=== PATIENT | female | born 1940 | race African-American/Black ===

== ENCOUNTER 2018-03-20 19:50 | Emergency (ER) | payer MEDICARE, MEDICAID ==
[~2018-03-20] VITALS: Ht 149.9 cm; Wt 96.2 kg
--- NOTE | 2018-03-20 20:35 | Emergency Room Report ---
History of Present Illness General Chief Complaint: Hypertension Source: Patient (Jhon Alanis MD) Present Illness HPI 77-year-old female presents ED for evaluation. Patient states that her blood pressure was high. States that she was sitting her rocking chair today and "blacked out". States that the room started spinning and she felt dizzy. Never lost consciousness. Complaining of mild headache. Dull, 5 out of 10, nonradiating. Denies photophobia or blurry vision. Denies nausea or vomiting. Denies neck stiffness. States she went her PMD 2 days ago was told that her blood pressure was a little high. Was told to continue her medications. States that she is compliant with her medications but may have forgotten to take her medication today. Denies chest pain or shortness of breath. No other aggravating relieving factors. Denies any other associated symptoms (Jhon Alanis MD) Allergies: Coded Allergies: No Known Allergies (Unverified , 04/17/15) Patient History Past Medical History: DM, HTN Past Surgical History: none Pertinent Family History: none Social History: Denies: smoking, alcohol use, drug use Last Menstrual Period: 1981 Now: No Immunizations: UTD Reviewed Nursing Documentation: PMH: Agreed; PSxH: Agreed (Jhon Alanis MD) Nursing Documentation-PMH Past Medical History: No History, Except For Hx Cardiac Problems: Yes - high cholesterol, arthritis Hx Hypertension: Yes Hx Asthma: Yes Hx Diabetes: Yes (Jhon Alanis MD) Review of Systems All Other Systems: negative except mentioned in HPI (Jhon Alanis MD) Physical Exam Vital Signs Date Time Temp Pulse Resp B/P (MAP) Pulse Ox O2 Delivery O2 Flow Rate FiO2 03/20/18 19:57 97.7 61 16 181/69 97 Room Air Sp02 EP Interpretation: reviewed, normal General Appearance: no apparent distress, alert, GCS 15, non-toxic Head: normocephalic, atraumatic Eyes: bilateral eye normal inspection, bilateral eye PERRL ENT: hearing grossly normal, normal pharynx, no angioedema, normal voice Neck: full range of motion, supple/symm/no masses Respiratory: chest non-tender, lungs clear, normal breath sounds, speaking full sentences Cardiovascular #1: regular rate, rhythm, no edema Cardiovascular #2: 2+ carotid (R), 2+ carotid (L), 2+ radial (R), 2+ radial (L) , 2+ dorsalis pedis (R), 2+ dorsalis pedis (L) Gastrointestinal: normal bowel sounds, non tender, soft, non-distended, no guarding, no rebound Rectal: deferred Genitourinary: normal inspection, no CVA tenderness Musculoskeletal: back normal, gait/station normal, normal range of motion, non- tender Neurologic: alert, oriented x3, responsive, motor strength/tone normal, sensory intact, speech normal Psychiatric: judgement/insight normal, memory normal, mood/affect normal, no suicidal/homicidal ideation Reflexes: 3+ bicep (R), 3+ bicep (L), 3+ tricep (R), 3+ tricep (L), 3+ knee (R) , 3+ knee (L) Skin: normal color, no rash, warm/dry, well hydrated Lymphatic: no adenopathy (Jhon Alanis MD) Medical Decision Making Diagnostic Impression: Primary Impression: Hypertension Qualified Codes: I10 - Essential (primary) hypertension Additional Impression: Dizziness ER Course Patient signout to me. She presents with dizziness and high blood pressure. She took an extra dose of her blood pressure medication because she felt dizziness. She did not check her blood pressure medication because machine was broken. No evidence of endorgan damage. She does have prerenal azotemia. Better now after IV fluid. No evidence of ACS, PE, dissection to name a few. No TIA or CVA. We'll discharge home. (Petey Bryant MD) EKG Diagnostic Results Rate: normal Rhythm: NSR ST Segments: no acute changes ASA given to the pt in ED: No (Jhon Alanis MD) Rhythm Strip Diag. Results EP Interpretation: yes Rhythm: NSR, no PVC's, no ectopy (Jhon Alanis MD) Chest X-Ray Diagnostic Results Chest X-Ray Diagnostic Results : Chest X-Ray Ordered: Yes # of Views/Limited/Complete: 1 View Indication: Chest Pain EP Interpretation: Yes Interpretation: no consolidation, no effusion, no pneumothorax, no acute cardiopulmonary disease Impression: No acute disease Electronically Signed by: Petey Bryant MD (Petey Bryant MD) CT/MRI/US Diagnostic Results CT/MRI/US Diagnostic Results : Imaging Test Ordered: CT head Impression Neg per radiologist (Petey Bryant MD) Last Vital Signs Date Time Temp Pulse Resp B/P (MAP) Pulse Ox O2 Delivery O2 Flow Rate FiO2 03/20/18 19:57 97.7 61 16 181/69 97 Room Air (Jhon Alanis MD) Status: improved (Petey Bryant MD) Disposition: HOME, SELF-CARE Condition: Stable Scripts Unable to Obtain Active Prescriptions or Reported Meds Referrals: NON PHYSICIAN (PCP) Additional Instructions: Check your blood pressure regularly. Take your medication as prescribed. Follow-up with your Dr. in 7 days. Return if worse. Jhon Alanis MD Mar 20, 2018 20:35 Petey Bryant MD Mar 20, 2018 22:04
[2018-03-20] MEDS: Sodium Chloride 500ML 500 ML IV ONE (20:40)
[2018-03-20 20:53] VITALS: BP 158/96
[2018-03-20 21:04] LABS: APPEARANCE,URINE CLEAR; BILIRUBIN, URINE NEGATIVE (NEGATIVE); COLOR,URINE PALE YELLOW; GLUCOSE, URINE (UA) NEGATIVE (NEGATIVE); KETONES,URINE NEGATIVE (NEGATIVE); LEUKOCYTE ESTERASE ,URINE NEGATIVE (NEGATIVE); NITRITE,URINE NEGATIVE (NEGATIVE); PH,URINE 7 (4.5-8.0); PROTEIN,URINE NEGATIVE (NEGATIVE); UROBILINOGEN,URINE NORMAL MG/DL (0.0-1.0)
[2018-03-20 21:07] LABS: BASOPHILS % (AUTO) 2.2 % (0.0-2.0); EOSINOPHILS % (AUTO) 2.3 % (0.0-3.0); HEMATOCRIT 38.9 % (37.0-47.0); HEMOGLOBIN 11.6 G/DL (12.0-16.0); LYMPHOCYTES % (AUTO) 46.7 % (20.0-45.0); MEAN CORPUSCULAR VOLUME 83 FL (80-99); MONOCYTES % (AUTO) 6.4 % (1.0-10.0); NEUTROPHILS % (AUTO) 42.4 % (45.0-75.0); PLATELET COUNT 127 K/UL (150-450); RED BLOOD COUNT 4.71 M/UL (4.20-5.40); RED CELL DISTRIBUTION WIDTH 13.4 % (11.6-14.8); WHITE BLOOD COUNT 7.1 K/UL (4.8-10.8)
[2018-03-20 21:17] LABS: ANION GAP 10 mmol/L (5-15); BLOOD UREA NITROGEN 30 mg/dL (7-18); CALCIUM 9.8 MG/DL (8.5-10.1); CARBON DIOXIDE 26 MMOL/L (21-32); CHLORIDE 102 MMOL/L (98-107); POTASSIUM 4.9 MMOL/L (3.5-5.1); SODIUM 138 MMOL/L (136-145)
[2018-03-20 21:31] LABS: ALANINE AMINOTRANSFERASE 32 U/L (12-78); ALBUMIN 3.5 G/DL (3.4-5.0); ALBUMIN/GLOBULIN RATIO 0.7 (1.0-2.7); ALKALINE PHOSPHATASE 98 U/L (46-116); ASPARTATE AMINO TRANSFERASE 35 U/L (15-37); BILIRUBIN,TOTAL 0.4 MG/DL (0.2-1.0); CKMB 1.8 NG/ML (0.0-3.6); CREATINE KINASE 230 U/L (26-308)
[2018-03-20 22:03] VITALS: BP 154/43
[2018-03-20 22:27] VITALS: BP 133/54
--- NOTE | 2018-03-21 14:07 | Cardiology Report ---
APPROVED REPORT EKG Measurement Heart [id number] Normal sinus rhythm Left axis deviation Abnormal ECG
== END 2018-03-20 22:27 | disposition home or self-care (01) ==
LOC: EMR 20:17
DX: I10 Essential (primary) hypertension (principal); R51 Headache; E11.9 Type 2 diabetes mellitus without complications; J45.909 Unspecified asthma, uncomplicated; R42 Dizziness and giddiness
CPT/HCPCS: 36415; 70450; 71045; 80053; 81003; 82550; 82553; 83880; 84484; 85025; 93005; 96360; 99284